=== PATIENT | male | born 1945 | race Caucasian/White ===

== ENCOUNTER → 2019-12-16 10:30 | Outpatient (BNVA) | payer MEDICARE, BC, SELFPAY | PROVIDERS: Family Provider Internal Medicine; PCP Family Medicine; Visit Provider Internal Medicine | DX: E11.9 Type 2 diabetes mellitus without complications (principal); E78.5 Hyperlipidemia, unspecified; G45.9 Transient cerebral ischemic attack, unspecified; I10 Essential (primary) hypertension | CPT/HCPCS: 80061; 83036; 84443 ==

== ENCOUNTER → 2020-01-14 12:54 | Outpatient (BNVA) | payer MEDICARE, BC, SELFPAY | PROVIDERS: Family Provider Internal Medicine; PCP Family Medicine; Visit Provider Dermatology | DX: D48.9 Neoplasm of uncertain behavior, unspecified (principal) | CPT/HCPCS: 88304 ==

== ENCOUNTER 2020-11-11 07:53 | Outpatient (CLI) | payer MEDICARE, BC, SELFPAY ==
--- NOTE | 2020-11-11 08:00 | MR_ITS ---
WS: [id number] MRI BRAIN WITHOUT CONTRAST HISTORY: G45.9 - Transient cerebral ischemic attack, unspecified COMPARISON: None available. TECHNIQUE: Diffusion imaging, multiplanar T1, T2 and FLAIR imaging obtained. Focal diffusion-weighted abnormality at the parieto-occipital junction, posterior to the RIGHT occipi elisa horn. Predominantly increased signal on the diffusion-weighted sequences with increasing signal o n the ADC mapping suggesting this is subacute to remote infarct with T2 shine through. There is an ad ditional remote hemorrhagic infarct in the RIGHT occipital lobe towards the midline. On the T1 sequen sy there is evidence for cortical laminar necrosis. Additional scattered cortical hyperintense signa l abnormalities in the LEFT frontal and LEFT parietal regions. Mild atrophy. Ventricles and extra-axial spaces are normal. No inferior displacement of cerebellar tonsils. The sella turcica and pituitary gland are unremarkabl e. Dural venous sinuses and nik[place]ki of [place] demonstrate no abnormality on this unenhanced studies. Paranasal sinuses: Very slight mucoperiosteal thickening in the RIGHT maxillary sinus. Mastoid air cells: Normal. Calvarium and scalp: Intact. MR/MR head wo con* [id number] IMPRESSION: 1. Small focal subacute infarct RIGHT parieto-occipital junction. 2. 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 3. Additional scattered T2 and FLAIR signal hyperintensities from prior ischem ic events.
== END 2020-11-11 07:54 | disposition home or self-care (01) ==
PROVIDERS: PCP Internal Medicine; Visit Provider Internal Medicine
DX: G45.9 Transient cerebral ischemic attack, unspecified (principal); I63.9 Cerebral infarction, unspecified
CPT/HCPCS: 70551

== ENCOUNTER → 2020-11-17 15:11 | Outpatient (BNVA) | payer MEDICARE, BC, SELFPAY | PROVIDERS: PCP Internal Medicine; Visit Provider Internal Medicine | DX: I63.9 Cerebral infarction, unspecified (principal); E11.9 Type 2 diabetes mellitus without complications; S41.102A Unspecified open wound of left upper arm, initial encounter; I10 Essential (primary) hypertension; E78.5 Hyperlipidemia, unspecified; H53.139 Sudden visual loss, unspecified eye | CPT/HCPCS: 80053; 80061; 83036 ==

== ENCOUNTER 2020-12-07 14:40 | Outpatient (CLI) | payer MEDICARE, BC, SELFPAY ==
--- NOTE | 2020-12-07 15:00 | USCV_ITS ---
Mercedes Goldsmith Age: 75 Gender: M : 1945 Exam Date: 12/07/2020 15:03 Ordering Phys: Delano Lozada MD Technologist: LOUISE MCCARTHY [place] [facility] [place]: OCCIP INFARCT Risk Factors: CVA Previous Vascular Surgery: None Right Brachial BP: / Left Brachial BP: / Right Left Velocity (cm/s) Spectral Plaque Velocity (cm/s) Spectral Plaque Syst/Diast Broadening Syst/Diast Broadening 93.60/ 22.20 Prox CCA 113.20/ 27.30 104.80/24.40 Mid CCA 99.50 / 22.60 83.00/ 23.00 Hetro Distal CCA 66.40 / 25.70 Hetro 79.60/ 20.70 Prox ICA 72.80 / 23.50 72.20/ 18.20 Mid ICA 79.20 / 28.90 80.50/ 22.40 Distal ICA 92.10 / 27.80 76.60 ECA 92.10 0.77 ICA/CCA 0.92 Antegrade Vertebral Antegrade 76.30/ 22.40 cm/s 63.20/ 10.70 cm/s Tri Subclavian [place] 222.5 195.6 0 0 FINDINGS Mild to moderate dense plaques at the bifurcations bilaterally Intimal thickening in the common carotid arteries bilaterally Antegrade flow in the vertebral arteries bilaterally. Normal Doppler flow velocities in the external carotid arteries CONCLUSIONS Mild to moderate dense plaques at the bifurcations bilaterally suggesting less than 50% stenosis Intimal thickening in the common carotid arteries bilaterally. Dr Rickie Salcido MD [facility] (Electronically Signed) Final Date: 08 December 2020 20:18 S
== END 2020-12-07 14:41 | disposition home or self-care (01) ==
LOC: US 14:42
PROVIDERS: PCP Internal Medicine; Visit Provider Internal Medicine
DX: H53.122 Transient visual loss, left eye (principal); I63.9 Cerebral infarction, unspecified; I65.23 Occlusion and stenosis of bilateral carotid arteries
CPT/HCPCS: 93880

== ENCOUNTER 2021-08-29 10:25 | Outpatient (CLI) | payer MEDICARE, BC, SELFPAY ==
--- NOTE | 2021-08-29 10:00 | CT_ITS ---
WS: [id number] CT ABDOMEN AND PELVIS WITH CONTRAST HISTORY: LUQ pain after a significant trauma to his abdomen. TECHNIQUE: Imaging performed of the abdomen and pelvis with IV contrast. Single phase imaging of the abdomen. Coronal and sagittal reformats are submitted. All CT scans at [facility] use at [address] one of these dose optimization techniques: automated exposure control; mA and/or kV adjustment per patient size (includes targeted exams where dose is matched to clinical indication); or iterative re construction. IV CONTRAST: Visipaque 320; 75 mL IV. Oral contrast: Yes. DLP: 1256.13 mGy.cm COMPARISON: 01/12/2019 Lower thorax: Lung bases are clear. Heart is normal size. No hiatal hernia. Liver/biliary system: Normal size with no intrahepatic dilatation. Normal portal vein. Gallbladder: Status post cholecystectomy. Pancreas: Normal size pancreas and pancreatic duct. No adjacent inflammation. Spleen: Normal size spleen. No mass or infarct. Small amount of calcification in the splenic capsule . Adrenal glands: Normal. Right kidney: Cortical cyst upper pole measures 13 mm. No hydronephrosis. There is also mild cortical thinning in the mid to lower kidney. 7 mm cyst lower pole. Left kidney: Normal. Aorta: Mild atherosclerosis with no aneurysm. Lymphadenopathy: None. Free fluid: None. GI tract: Well-distended stomach. No small bowel obstruction. Appendix is normal. Mild diffuse consti pation and fecal retention. No significant diverticular disease. Abdominal wall: Unremarkable abdominal wall. No hernia. Pelvis: No free fluid or adenopathy within the pelvis. Bones: Mild degenerative spondylitic changes within the lumbar spine. No fractures identified. CT/CT abdomen pelvis w con* [id number] IMPRESSION: 1. No soft tissue or bone abnormalities are identified from the recent trauma. 2. The spleen is intact. No mesenteric hematoma and no free fluid. 3. Prior cholecystectomy. 4. RIGHT renal cysts.
[2021-08-29 12:27] LABS: Blood Urea Nitrogen 28 mg/dL (8-23)
[2021-08-29] MEDS: iodixanol 320 mg/mL 100mL Btl IV (12:45)
[2021-08-29] MEDS: iohexol 300 mg/mL 50 mL Btl PO (12:50)
== END 2021-08-29 10:26 | disposition home or self-care (01) ==
LOC: RAD 10:29
PROVIDERS: PCP Internal Medicine; Visit Provider Internal Medicine
DX: R10.812 Left upper quadrant abdominal tenderness (principal); Z90.49 Acquired absence of other specified parts of digestive tract; N28.1 Cyst of kidney, acquired
CPT/HCPCS: 74177; 82565; 84520

== ENCOUNTER → 2022-10-01 09:20 | Outpatient (BNVA) | payer MEDICARE, BC, SELFPAY | PROVIDERS: PCP Internal Medicine; Visit Provider Nurse Practitioner Family | DX: E11.9 Type 2 diabetes mellitus without complications (principal); E78.5 Hyperlipidemia, unspecified; I10 Essential (primary) hypertension; N40.0 Benign prostatic hyperplasia without lower urinary tract symptoms | CPT/HCPCS: 80053; 80061; 83036 ==

== ENCOUNTER → 2024-10-12 10:44 | Outpatient (BNVA) | payer MEDICARE, BC, SELFPAY | PROVIDERS: PCP Internal Medicine; Visit Provider Dermatology | DX: C79.9 Secondary malignant neoplasm of unspecified site (principal); L82.1 Other seborrheic keratosis; L81.4 Other melanin hyperpigmentation; D18.01 Hemangioma of skin and subcutaneous tissue; D17.1 Benign lipomatous neoplasm of skin and subcutaneous tissue of trunk; Z08 Encounter for follow-up examination after completed treatment for malignant neoplasm; Z85.828 Personal history of other malignant neoplasm of skin; D48.5 Neoplasm of uncertain behavior of skin; L57.0 Actinic keratosis | CPT/HCPCS: 11102; 17000; 69100; 99203 ==

== ENCOUNTER → 2024-11-04 10:30 | Outpatient (BNVA) | payer MEDICARE, SELFPAY | PROVIDERS: PCP Internal Medicine; Visit Provider Dermatology | DX: L57.0 Actinic keratosis (principal); D03.59 Melanoma in situ of other part of trunk; D03.61 Melanoma in situ of right upper limb, including shoulder | CPT/HCPCS: 11603; 12032; 99213 ==

== ENCOUNTER → 2024-11-18 09:38 | Outpatient (BNVA) | payer MEDICARE, SELFPAY | PROVIDERS: PCP Internal Medicine; Visit Provider Dermatology | DX: L30.0 Nummular dermatitis (principal); D03.59 Melanoma in situ of other part of trunk | CPT/HCPCS: 11603; 12032; 99214 ==

== ENCOUNTER → 2025-01-04 09:25 | Outpatient (BNVA) | payer MEDICARE, SELFPAY | PROVIDERS: PCP Internal Medicine; Visit Provider Dermatology | DX: Z08 Encounter for follow-up examination after completed treatment for malignant neoplasm (principal); C79.9 Secondary malignant neoplasm of unspecified site; L81.4 Other melanin hyperpigmentation; D69.2 Other nonthrombocytopenic purpura; Z86.006 Personal history of melanoma in-situ; L57.0 Actinic keratosis | CPT/HCPCS: 17000; 99213 ==